=== PATIENT | male | born 1955 | race Caucasian/White ===

== ENCOUNTER 2019-10-15 18:52 | Emergency (ER) | payer OTHER ==
--- NOTE | 2019-10-15 19:18 | ER ---
Nurse's Notes [facility] Name: Sven Fletcher Age: 63 yrs Sex: Male : 1955 Arrival Date: 10/15/2019 Time: 18:59 Bed Waiting Private MD: Diagnosis: ED Course: 10/14 18:59 Patient arrived in ED. [id number] 19:17 None, None is Attending Physician. sg Administered Medications: No medications were administered Outcome: 19:17 Patient left the ED. sg Signatures: Leonidas Calhoun, RN RN Shawn Finnegan [id number]
== END 2019-10-15 19:17 | disposition left against medical advice (07) ==
LOC: ER 18:52
DX: Z53.21 Procedure and treatment not carried out due to patient leaving prior to being seen by health care provider (principal)